=== PATIENT | female | born 1965 | race African-American/Black ===

== ENCOUNTER 2017-07-01 05:15 | Inpatient (IN) ==
[2017-07-01] MEDS ORDERED: PHENERGAN IM ONE (05:39)
[2017-07-01] MEDS ORDERED: G.I. COCKTAIL PO ONE (06:01)
--- NOTE | 2017-07-01 06:08 | PROVIDER DOCUMENTATION ---
HPI-Abdominal Pain/GI Problem - General Chief Complaint: Abdominal Pain Stated Complaint: abd Time Seen by Provider: 07/01/17 05:53 Source: patient Allergies/Adverse Reactions: Patient Allergies Allergy/AdvReac Type Severity Reaction Status Date / Time tiagabine HCl * Allergy Unknown Verified 09/29/16 07:27 [From Gabitril] varenicline tartrate * Allergy Unknown Verified 09/29/16 07:27 [From Chantix] Home Medications: Home Medication List Medication Instructions Recorded Confirmed Last Taken Type Esomeprazole [Nexium] 40 mg PO DAILY 09/13/13 09/29/16 07/12/14 History Hydrocodone/Acetaminophen [Lortab 1 each PO BID 09/13/13 09/29/16 01/30/14 07: 00 History 7.5-500 Tablet] Quetiapine [Seroquel] 200 mg PO BID 09/13/13 09/29/16 07/12/14 08:00 History Venlafaxine E.r. [Effexor Xr] 150 mg PO DAILY 01/30/14 09/29/16 07/12/14 History 150 mh Quetiapine [Seroquel] 600 mg PO QHS 01/31/14 09/29/16 1 Day Ago History Alprazolam [Xanax] 1 mg PO TID PRN PRN #20 tablet 02/06/14 09/29/16 07/12/14 Rx Oxycodone HCl/Acetaminophen 1 each PO Q6H PRN PRN #15 tablet 02/06/14 09/29/16 Unknown Rx [Percocet 7.5-325 mg Tablet] Risperidone [Risperdal] 3 mg PO DAILY 07/13/14 09/29/16 1 Day Ago History Trazodone [Desyrel] 150 mg PO DAILY 07/13/14 09/29/16 1 Day Ago History Albuterol 2.5MG/Ipratrop 0.5MG 3 ml INH Q6H PRN PRN #100 neb 07/25/15 09/29/16 Unknown Rx [Duoneb] Losartan/Hydrochlorothiazide 1 each PO QAM #30 tablet 07/25/15 09/29/16 Unknown Rx [Hyzaar 100-25 Tablet] Metoprolol Succinate [Toprol Xl] 50 mg PO QAM #30 tab.er.24h 07/25/15 09/29/16 1 Day Ago Rx Guaifenesin/Codeine Phosphate 10 ml PO Q4HR PRN #120 liquid 09/29/16 Unknown Rx [Cheratussin AC Syrup] Hydrocodone/Acetaminophen [[place] 1 each PO Q4-6H PRN PRN #20 tablet 09/29/16 Unknown Rx 10-325 Tablet] Amlodipine Besylate/Benazepril 1 tab PO DAILY 07/01/17 07/01/17 1 Day Ago History [Amlodipine-Benazepril 10-40 mg] Clonidine HCl [Clonidine HCl] 0.1 mg PO BID 07/01/17 07/01/17 1 Day Ago History Duloxetine HCl [Duloxetine HCl] 60 mg PO DAILY 07/01/17 07/01/17 1 Day Ago History Estradiol [Estradiol] 1 mg PO DAILY 07/01/17 07/01/17 1 Day Ago History Omeprazole [Omeprazole] 40 mg PO DAILY 07/01/17 07/01/17 1 Day Ago History Promethazine HCl 25 mg PO Q8HR 07/01/17 07/01/17 1 Day Ago History - History of Present Illness-ABD Nature of Presenting Problems: Pt reports several months of abdominal pain and now she has diarrhea. She reports many tests such as CT scans and taking prilosec from her doctor without any relief and is scheduled to see Dr clark for her trouble on Thursday. Abdominal Pain Onset Location: reports: generalized abdomen Pain Radiation: reports: epigastric Quality of Pain: reports: fullness Onset/Duration: reports: other (1-2 months, she has a past history of hepatitis C, but it went away??? She has bipolar disorder and is the mother of 3 children. She is scheduled to see Dr Clark in 2 days for a GI consult) Review of Systems - Adult - REVIEW OF SYSTEMS - ADULT Constitutional: denies: chills, fever Eyes: denies: discharge, blurred vision Ears, Nose, Mouth & Throat: denies: ear pain, sinus problem Cardiovascular: denies: chest pain, heart murmur, palpitations Respiratory: denies: chronic cough, shortness of breath, wheezing Gastrointestinal: reports: abdominal pain, diarrhea, nausea, vomiting. denies: constipation Genitourinary: denies: dysuria, hematuria Musculoskeletal: denies: bone pain, joint pain Integumentary: denies: hives, mole changes Neurological: denies: ataxia, numbness Psychiatric: reports: other (bipolar). denies: insomnia Endocrine: denies: goiter, cold intolerance, heat intolerance Hematologic/Lymphatic: denies: low blood count, lymphedema Allergic/Immunologic: denies: asthma, eczema, urticaria Past History - Adult - PAST MEDICAL HISTORY-ADULT Review of Records: reports: Nursing Assessment Review, Medications Reviewed Major Childhood Illnesses: reports: denies history Cardiovascular: reports: HTN Respiratory: reports: COPD Gastrointestinal: reports: GERD Obstetrical/Gynecological: reports: denies history Genitourinary: reports: denies history Musculoskeletal: reports: denies history Neurological: reports: denies history Psychiatric: reports: bipolar Endocrine/Immune: reports: denies history Other Conditions: reports: denies history - PRIOR SURGERIES/PROCEDURES Surgical/Procedure History: reports: hysterectomy - IMMUNIZATION STATUS Childhood Immunizations: See Nurse Assessment Flu Vaccine: See Nurse Assessment - FAMILY HISTORY Family History: reviewed, not pertinent Physical Exam-General - PHYSICAL EXAM-ADULT Initial Vital Signs Reviewed: Yes - CONSTITUTIONAL General Appearance: appears well, alert, moderate distress - EYES Eyes: PERRL/EOMI, pink conjunctivae - HEAD, EARS, NOSE, MOUTH & THROAT HENMT: normocephalic/atraumatic, moist mucous membranes, normal ENT inspection - NECK Neck: non-tender, full range of motion, supple, normal inspection - RESPIRATORY Respiratory: chest non-tender, lungs clear, normal breath sounds, no pleuratic chest pain, no respiratory distress - CARDIOVASCULAR Cardiovascular: normal peripheral pulses, regular rate, rhythm, no edema, no gallop, no JVD, no murmur - GASTROINTESTINAL (ABDOMEN) Abdominal Exam: normal bowel sounds, non tender, soft, no organomegaly, no pulsatile mass - LYMPHATIC Lymphatic: no adenopathy - MUSCULOSKELETAL Back Exam: normal inspection, no CVA tenderness, no vertebral tenderness Extremity: normal range of motion, non-tender, normal gait, normal inspection - SKIN Integumentary: normal color, normal turgor, warm/dry - NEUROLOGIC 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, grossly normal, no motor/sensory deficits - PSYCHIATRIC Psych/Mental Status: normal mood/affect, normal thought content, normal thought process, oriented x 3 Progress - PLAN OF CARE/RESULTS Progress/Plan/Lab Results: Vital Signs - 8 hr 07/01/17 05:17 Temperature 98.1 F Pulse Rate 72 Respiratory Rate 18 Blood Pressure 198/097 O2 Sat by Pulse Oximetry 97 Orders Category Date Time Status Saline Loc DIRECTED Care 07/01/17 06:00 Ordered NPO Diet 07/01/17 06:00 Ordered AMYLASE [CHEM] Stat Lab 07/01/17 06:00 Ordered CBC WITH ELECTRONIC DIFF [HEME] Stat Lab 07/01/17 06:00 Ordered COMPREHENSIVE METABOLIC PANEL [CHEM] Stat Lab 07/01/17 06:00 Ordered LIPASE [CHEM] Stat Lab 07/01/17 06:00 Ordered UDS [URINE DRUG SCREEN PL] Stat Lab 07/01/17 06:[address] W/POSS RFLX CULT [URINALYSIS] Stat Lab 07/01/17 06:00 Uncollected Lido/Yanez Alk/Al&mg Hydrox [G.i. Cocktail] Med 07/01/17 06:01 Once 30 ml PO NOW ONE Promethazine [Phenergan] Med 07/01/17 05:39 Discontinued 25 mg IM NOW ONE Result Diagrams: 07/01/17 06:53 07/01/17 06:53 - REASSESSMENT Reassessment #1 Time Reassessed: 07:17 Status: unchanged (she wants something for pain but is apparently constipated , so donnie start meds for evacuation) - CONSULTS/PCP/HOSPITALIST Notification #1 *Consult/PCP/Hospitalist*: Dr Benítez Time Discussed: 10:11 Consult Disposition: Admit (pancreatitis) Departure - Departure Date of Disposition Decision: 07/01/17 Time of Disposition Decision: 10:12 DIAGNOSIS: Pancreatitis, acute Qualifiers: Pancreatitis type: alcohol induced Acute pancreatitis complication: no infection or necrosis Qualified Code(s): K85.20 - Alcohol induced acute pancreatitis without necrosis or infection Disposition: ADMITTED INPATIENT 09 Certified Medical Emergency: Emergent Condition: Stable Referrals and Follow-Ups: None,PCP [Primary Care Provider] - - Critical Care Note This patient required my direct & personal management of CC.: No Attestation - Physician/ MATTHEW Attestation The physician spent face to face time with patient:: Yes Advanced Practice Provider documentation review:: Supervising physician onsite and consulted in the evaluation and care of this patient. The physician did have a face to face encounter with the patient.
[2017-07-01] MEDS ORDERED: NS 1,000 ML IV ONE ×2 (06:14→07:28)
[2017-07-01] MEDS ORDERED: DULCOLAX PO ONE (07:12)
[2017-07-01 07:15] LABS: MANUAL DIFF NEEDED? NO
[2017-07-01 07:17] LABS: BASO% 0.1 % (0.0-0.8); EOS# 0.02 X1000 (0.0-0.7); EOS% 0.1 % (0.0-10.0); HEMATOCRIT 47.5 % (37.0-47.0); IMM GRAN# 0.02 X1000 (0.0-0.04); IMM GRAN% 0.1 % (0.0-0.5); LYMPH# 2.31 X1000 (1.2-3.4); LYMPH% 16.8 % (20.5-51.1); MCH 29.9 PG (27-31); MCHC 33.7 g/dL (33-37); MCV 88.8 FL (81-99); MONO# 0.79 X1000 (0.11-0.59); MONO% 5.8 % (1.7-9.3); MPV 9.5 FL (7.4-10.4); NEUT% 77.1 % (42.2-75.2); PLT 304 X1000 (130-400); RBC 5.35 XMIL (4.2-5.4)
--- NOTE | 2017-07-01 07:24 | Diag Imaging Result Doc PS360 ---
EXAM: FLAT/UPRIGHT ABD/1 VIEW CHEST HISTORY: n/v/d abdominal pain TECHNIQUE: Three views COMPARISON: 05/04/2017 FINDINGS: The lungs are well expanded. No cardiomegaly. No pneumonia. No free air beneath the diaphragm. No bowel obstruction. The liver is mildly prominent. No foreign body. No abnormal abdominal calcification. IMPRESSION: Mildly prominent liver, otherwise negative exam. Electronically signed by Kody Salas 07/01/2017 7:22 AM
[2017-07-01] MEDS ORDERED: CITRATE OF MAGNESIA PO ONE (07:27)
[2017-07-01 07:39] LABS: AGAP 11; ALBUMIN 4.5 g/dL (3.5-5.0); ALKALINE PHOSPHATASE 87 U/L (32-104); AMYLASE 231 U/L (20-200); BUN 17 mg/dL (8-22); CHLORIDE 100 mmol/L (98-107); COSMO 286; GOT 19 U/L (10-30); GPT 19 U/L (10-36); LIPASE 167 U/L (13-60); POTASSIUM 3.7 mmol/L (3.5-5.1); SODIUM 141 mmol/L (136-145); TCO2 30 mmol/L (25-35); TOTAL BILIRUBIN < 0.15 mg/dL (0.20-1.00); TOTAL PROTEIN 7.8 g/dL (6.3-8.3)
[2017-07-01] MEDS ORDERED: TORADOL IV ONE (07:44)
[2017-07-01] MEDS ORDERED: ZOFRAN IV ONE ×2 (07:59→09:38)
--- NOTE | 2017-07-01 08:34 | Diag Imaging Result Doc PS360 ---
EXAM: CT ABD/PELVIS W/ IV CONT ONLY HISTORY: elevated WBC/pancreatitis/constipation TECHNIQUE: CT abdomen and pelvis with IV contrast as per standard protocol. Dose reduction technique. COMPARISON: 06/17/2016 FINDINGS: There is been interval clearing of the left basilar infiltrate. The liver, spleen, kidneys, and adrenal glands are unremarkable. The pancreas appears grossly normal. There is no peripancreatic inflammation. There is a hiatal hernia. The stomach is nondistended. Fat-containing ventral hernia appears stable. There is atherosclerotic calcification. There is no free fluid or free air. No evidence for bowel obstruction. The appendix appears normal. There is no lymphadenopathy. There is lower lumbar spondylosis. The uterus is surgically absent. IMPRESSION: Stable CT of the abdomen and pelvis. Hiatal and ventral hernia. Electronically signed by Tammy Soria 07/01/2017 8:31 AM
[2017-07-01 08:45] LABS: BILIRUBIN URINE NEGATIVE (NEGATIVE); BLOOD URINE NEGATIVE (NEGATIVE); CLARITY CLEAR (CLEAR); COLOR YELLOW; GLUCOSE URINE NEGATIVE (NEGATIVE); LEUKOCYTES URINE 1+ (NEGATIVE); NITRITE URINE NEGATIVE (NEGATIVE); PROTEIN URINE NEGATIVE (NEGATIVE); UROBILINOGEN URINE NORMAL
[2017-07-01 08:50] LABS: UR AMPHETAMINES QUAL NONE DETECTED (NONE DETECT); UR BARBITUATES QUAL NONE DETECTED (NONE DETECT); UR BENZODIAZEPIN QUAL PRESUMPTIVE POSITIVE (NONE DETECT); UR CANNABINOIDS QUAL PRESUMPTIVE POSITIVE (NONE DETECT); UR COCAINE QUAL NONE DETECTED (NONE DETECT); UR MDMA QUAL NONE DETECTED (NONE DETECT); UR METHADONE QUAL NONE DETECTED (NONE DETECT); UR METHAMPHETAMINE QUAL NONE DETECTED (NONE DETECT); UR OPIATES QUAL NONE DETECTED (NONE DETECT); UR OXYCODONE QUAL NONE DETECTED (NONE DETECT); UR PCP QUAL NONE DETECTED (NONE DETECT); UR TCA QUAL NONE DETECTED (NONE DETECT)
[2017-07-01] MEDS ORDERED: CATAPRES PO ONE (08:54)
[2017-07-01] MEDS ORDERED: TOPROL XL PO ONE (08:56)
[2017-07-01] MEDS ORDERED: LOTENSIN PO ONE (08:56)
[2017-07-01] MEDS ORDERED: COZAAR PO ONE (08:56)
[2017-07-01] MEDS ORDERED: HYDROCHLOROTHIAZIDE PO ONE (08:56)
[2017-07-01] MEDS ORDERED: NORVASC PO ONE (08:56)
[2017-07-01 09:00] LABS: URINE CULTURE PL NEEDED? YES; URINE EPITHELIAL CELLS <10 /HPF (<10); URINE RBC <10 /HPF (<10)
[2017-07-01 09:01] LABS: URINE CAST NONE SEEN /LPF; URINE CRYSTAL NONE SEEN /HPF; URINE SOURCE CLEAN CATCH
[2017-07-01] MEDS ORDERED: DILAUDID IV ONE ×2 (09:38→10:20)
[2017-07-01] MEDS ORDERED: APRESOLINE IV ONE (10:20)
[2017-07-01] MEDS ORDERED: DESYREL PO PRN (15:28)
[2017-07-01] MEDS ORDERED: CATAPRES PO PRN (15:34)
[2017-07-01] MEDS ORDERED: KLONOPIN PO ONE (15:41)
[2017-07-01] MEDS ORDERED: TYLENOL PO PRN (15:42)
[2017-07-01 16:42] LABS: AMYLASE 167 U/L (20-200); LIPASE 31 U/L (13-60)
[2017-07-01] MEDS: VENTOLIN HFA INH SCH (16:45)
[2017-07-01] MEDS: PHENERGAN IV PRN (18:09)
[2017-07-01] MEDS: CARAFATE LIQUID PO SCH ×2 (18:09→21:01)
[2017-07-01] MEDS: SODIUM CHLORIDE 0.9% INJ PRN (18:09)
[2017-07-01] MEDS ORDERED: SODIUM CHLORIDE 0.9% INJ SCH (18:45)
[2017-07-01] MEDS: PROTONIX IV SCH (19:09)
[2017-07-01] MEDS: MORPHINE IV PRN ×2 (19:42→23:08)
[2017-07-01] MEDS ORDERED: RISPERDAL PO SCH (21:00)
[2017-07-01] MEDS ORDERED: SEROQUEL XR PO SCH (21:00)
[2017-07-01] MEDS: KLONOPIN PO SCH (21:08)
--- NOTE | 2017-07-01 23:53 | HISTORY AND PHYSICAL ---
WOMEN'S [employer] COACH: Dr. Clark. CHIEF COMPLAINT: Abdominal pain, nausea and vomiting. HISTORY OF PRESENT ILLNESS: This is a 51-year-old female with a prior history of intractable nausea, vomiting, abdominal pain, and gastric ulcers. She presented to the emergency room complaining of 1 month of abdominal bloating, increased gas, nausea and vomiting. She did state that she has an appointment Dr. Clark on Thursday but she cannot wait until then. She states that "I have never been able to burp since I been born" so she takes a few tablespoons of soda a few times today to assure that she burps. She states this does relieve for a little while then she feels bloated again requiring her to take more baking soda. She did state that she had been vomiting quite heavily up into the morning and prior to coming to the emergency room. She was given Phenergan as well as it looks like 12 mg of Zofran in the emergency room along with IV hydration. Vomiting did subside and her pain did relieve somewhat. She was found to have an amylase of 231 and a lipase of 167 on her admission labs. Abdominal and pelvis CT scan revealed liver, spleen, kidneys and adrenal glands unremarkable. Pancreas grossly normal. No peripancreatic inflammation. She does have a hiatal hernia, a nondistended stomach as well as a ventral hernia. She denies any history of regular alcohol use. She does state that occasionally she has a beer or so socially. Her daughter is unaware of her drinking at all. PAST MEDICAL HISTORY: Questionable diabetes, previous gastric ulcer, gastritis , hypertension, gastroesophageal reflux disease, bipolar disorder. PAST SURGICAL HISTORY: Hysterectomy. SOCIAL HISTORY: She smokes 1-2 packs a day. She has occasional beer socially. She denies any substance abuse. ALLERGIES: Chantix and Gabitril. HOME MEDICATIONS: Tramadol, Seroquel, [place] 10, Klonopin, gabapentin, Vyvanse, risperidone, omeprazole, trazodone, Voltaren, Toprol-XL, amlodipine, benazepril, clonidine, estradiol, duloxetine. Dosages will be confirmed. REVIEW OF SYSTEMS: A 14 point review of systems is discussed with patient with pertinent positives stated in HPI. She denied chest pain, palpitations, dizziness, syncope, black or bloody vomitus, black or bloody stools, any hematuria, dysuria, frequency, urgency. PHYSICAL EXAMINATION: GENERAL: This is a 51-year-old female who is lying in the bed in mild distress. VITAL SIGNS: Blood pressure is 150/90 with a heart rate of 60, respirations are 16, temperature is 98.1 degrees with a room air saturation of 96-100%. HEENT: Head is normocephalic, atraumatic. Pupils equal, round, react to light. EOMs are intact. Sclerae anicteric. Mucous membranes are moist. NECK: Supple. Trachea midline. CARDIOVASCULAR: Regular rate and rhythm. S1, S2 appreciated. PULMONARY: Breath sounds are clear with no increased work of breathing noted. BACK: No CVAT. No spine tenderness. GASTROINTESTINAL: Abdomen is distended. It is soft. She has generalized tenderness. Areas of tenderness fluctuate from exam to exam. She does have bowel sounds in all 4 quadrants. MUSCULOSKELETAL: Good range of motion of joints. NEUROLOGIC: She is alert orient x3. Cranial nerves 2-12 grossly intact. EXTREMITIES: No clubbing, cyanosis, or edema. Calves are nontender. Pulses are palpable x4. DIAGNOSTICS: WBC is 13.7 with hemoglobin 16, hematocrit 47 and platelets of 304 ,000. Sodium is 141, potassium 3.7, BUN 17, creatinine 0.9, CO2 is 30, glucose of 158. Amylase is [address] of the abdomen and pelvis reveals a hiatal and ventral hernia with a grossly normal pancreas and no peripancreatic inflammation. Abdominal x-ray reveals a prominent liver, otherwise negative exam. ASSESSMENT AND PLAN: 1. Nausea, vomiting and abdominal pain. This is chronic. This has been a problem for about 6 years. She was last evaluated by Dr. Clark in 2013. We will repeat her amylase and lipase. She will be NPO. If amylase and lipase have resolved we can start clear liquids and advance as tolerated. We will give IV hydration as well as IV pain and nausea medication. We will call Dr. Clark with plans to transfer her to [facility] today or in the next few days for further evaluation. We will order a gastric emptying study for in the morning. 2. History of ulcer. We will hold any anti-inflammatories. Start Carafate 1 g q.6 hours with IV Protonix. 3. Leukocytosis. The patient denies any fever, chills or any sick contacts. She is afebrile now. This could be reactive. As we can see no source of infection, we will trend her labs, watch vital signs and antibiotics will be started if appropriate. 4. History of hypertension. We will identify her home medications at present and we will trend vital signs. We will start as appropriate. If vomiting resumes, we may have to treat IV. 5. Chronic obstructive pulmonary disease. We will continue medications as appropriate. Have breathing treatments p.r.n. 6. Bipolar/schizophrenia. We will identify her psych medications and continue as appropriate. 7. Nicotine abuse. I did speak with the patient regarding smoking cessation, the perils of continuing at this time. She states she has no intention of stopping. 8. Deep venous thrombosis prophylaxis. As she has had ulcers in the past, we will use SCDs and for GI prophylaxis, as stated before, we will use Protonix. Further treatments pending hospital course. Dictated by DOMINIQUE Morgan for Ernie Benítez MD cc: DOMINIQUE Morgan MD [facility]
[2017-07-01] MEDS ORDERED: DUONEB (A & A) INH PRN (23:57)
[2017-07-02] MEDS ORDERED: DUONEB (A & A) INH PRN (00:01)
[2017-07-02] MEDS: CARAFATE LIQUID PO SCH ×4 (02:02→19:59)
[2017-07-02] MEDS ORDERED: MORPHINE IV ONE (02:10)
[2017-07-02] MEDS: MORPHINE IV PRN ×3 (02:22→08:48)
[2017-07-02] MEDS: PHENERGAN IV PRN ×3 (02:22→13:15)
[2017-07-02] MEDS: VENTOLIN HFA INH SCH ×3 (03:39→21:10)
[2017-07-02 05:51] LABS: HEMATOCRIT 49.8 % (37.0-47.0); HEMOGLOBIN 16.6 g/dL (12.0-16.0); MCH 29.9 PG (27-31); MCHC 33.3 g/dL (33-37); MCV 89.6 FL (81-99); MPV 9.9 FL (7.4-10.4); RBC 5.56 XMIL (4.2-5.4)
[2017-07-02 05:55] LABS: HEMOGLOBIN A1C 5.5 % (4.8-6.0)
[2017-07-02 06:27] LABS: AGAP 19; ALBUMIN 4.8 g/dL (3.5-5.0); ALKALINE PHOSPHATASE 90 U/L (32-104); AMYLASE 127 U/L (20-200); BUN 9 mg/dL (8-22); CALCIUM 9.7 mg/dL (8.8-10.2); CHLORIDE 97 mmol/L (98-107); COSMO 287; GOT 23 U/L (10-30); GPT 17 U/L (10-36); LIPASE 24 U/L (13-60); POTASSIUM 4.3 mmol/L (3.5-5.1); SODIUM 143 mmol/L (136-145); TCO2 27 mmol/L (25-35); TOTAL BILIRUBIN 0.29 mg/dL (0.20-1.00); TOTAL PROTEIN 8.3 g/dL (6.3-8.3)
[2017-07-02] MEDS ORDERED: PRILOSEC PO SCH (07:00)
--- NOTE | 2017-07-02 08:38 | Diag Imaging Result Doc PS360 ---
GASTRIC EMPTYING - 07/02/2017 INDICATION: N,V, abd pain TECHNIQUE: 559 uCi of labeled solid food was ingested COMPARISON: CT abdomen pelvis 07/01/2017 FINDINGS: There was no gastric emptying during the exam. Imaging was 0%. The patient was very nauseous throughout the exam. IMPRESSION: No gastric emptying compatible with severe gastroparesis or gastric outlet obstruction. No reason for obstruction is visible on the CT from yesterday. Electronically signed by Zach Hayden 07/02/2017 8:35 AM
[2017-07-02] MEDS: SODIUM CHLORIDE 0.9% INJ PRN (08:49)
[2017-07-02] MEDS: PROTONIX IV SCH ×2 (08:49→20:15)
[2017-07-02] MEDS ORDERED: NORVASC PO SCH (09:00)
[2017-07-02] MEDS ORDERED: SEROQUEL XR PO SCH (09:00)
[2017-07-02] MEDS ORDERED: LOTENSIN PO SCH (09:00)
[2017-07-02] MEDS ORDERED: TOPROL XL PO SCH (09:00)
[2017-07-02] MEDS: KLONOPIN PO SCH ×3 (09:35→20:00)
[2017-07-02] MEDS ORDERED: DESYREL PO PRN (09:55)
[2017-07-02] MEDS ORDERED: MORPHINE IV PRN (09:57)
[2017-07-02] MEDS ORDERED: TYLENOL PO PRN (10:00)
[2017-07-02] MEDS: SEROQUEL XR PO SCH (13:15)
--- NOTE | 2017-07-02 17:36 | PROGRESS NOTE ---
DATE: 07/02/2017 SUBJECTIVE: Today, Ms. Robert continues to be complaining of abdominal pain, but no nausea, and no diarrhea. OBJECTIVE: Vital Signs: Blood pressure is 175/118, pulse is 104, respirations 20, temperature 98.5 degrees. General: Ms. Robert is a 51-year-old female. She was in bed, not seemingly distressed. HEENT: Mucosa is pink and moist. Anicteric. Acyanotic. Neck: Supple. Chest: Clear. Abdomen: Soft, distended. There is some tenderness in the epigastrium. Bowel sounds seem to be hyperreactive. Extremities: No pedal edema. Central Nervous System: Patient is awake and alert and oriented. There is no focal neurological deficit. LABORATORY DATA: WBC is 11.2. Hemoglobin is 16.6. Platelet count is 293,000. Chemistry is reviewed, is completely unremarkable. Amylase is back to normal, and lipase is actually 24. IMAGING STUDIES: A CT scan of the abdomen and pelvis was done on presentation, which shows stable abdomen, hiatal and ventral hernia. A nuclear study was done at 8:00 this morning, which shows no gastric emptying compatible with severe gastroparesis and gastric outlet obstruction. ASSESSMENT: 1. Nausea and vomiting secondary to severe gastroparesis. 2. Constipation, likely due to narcotic abuse. 3. History of peptic ulcer disease. 4. Hypertension. 5. Bipolar and schizophrenia. 6. Elevated lipase and amylase. However, I do not think patient has an acute pancreatitis, and more so, CT scan did not show any abnormality in the pancreas. PLAN: We are going to keep the patient NPO, put in an NG tube if she continues to be extremely nauseated and vomiting. We will specifically stop giving the patient any narcotic, since she seems to have severe gastroparesis with possible gastric obstruction syndrome. GI has already been notified, and we anticipate that this patient gets an EGD just to look at the Upper GI tract. cc: Enoch Mcneill MD [facility]
[2017-07-02] MEDS: OFIRMEV 1000 MG/ISOTONIC SOLN 1,000 MG/100 ML BOTTLE IV PRN (18:57)
[2017-07-02] MEDS: RISPERDAL PO SCH (19:59)
[2017-07-02] MEDS: CATAPRES PO PRN (20:00)
[2017-07-02] MEDS: SODIUM CHLORIDE 0.9% INJ SCH (20:15)
--- NOTE | 2017-07-02 22:05 | CONSULTATION ---
DATE OF CONSULTATION: 07/02/2017 REFERRING PHYSICIAN: Enoch Mcneill M.D. INDICATION FOR CONSULTATION: 1. Nausea with vomiting. 2. Abdominal pain. 3. Elevated amylase and lipase. HISTORY OF PRESENT ILLNESS: The patient is a 51-year-old female who has been followed in our clinic for the last several years. She states that she was in her usual state of health until approximately 1 month ago when she began to have intermittent nausea and vomiting. She notes that the frequency increased to the point that she was vomiting on a near daily basis. On the morning of admission, she developed severe epigastric pain that radiated into her upper back associated with profuse nausea with vomiting that she was unable to control. She describes one month of abdominal bloating, gas, nausea and vomiting. She has a history of gastroparesis that was diagnosed on gastric-emptying study in 2013. She has been intermittently consistent with a gastroparesis diet. She has had chronic nausea with intermittent vomiting, but not to the degree of the consistency that it is at this time. She notes difficulty with burping, so she takes a small amount of baking soda every day in order to burp or belch. In the emergency room, she had severe vomiting and was found to be dehydrated. She was noted to have an elevated amylase to 231 and an elevated lipase of 167 on admission, although she has does not have a history of heavy alcohol ingestion. In the emergency room, she had a CT scan that revealed normal liver, spleen, kidney and adrenal glands. The pancreas appeared grossly normal. There was no peripancreatic inflammation. She was noted to have a hiatal hernia which was initially found on endoscopy in 2013. The stomach on CT scan was nondistended. Please note, it was in IV only contrast study. She has a stable fat-containing ventral hernia, atherosclerotic calcifications and normal appendix. She does have mild lower lumbar spondylosis, but otherwise the exam was unremarkable. It is stable from previous exams. Because of her symptoms, we are asked to participate in her care. PAST MEDICAL HISTORY: 1. Diabetes mellitus 2. 2. Hepatitis C with mild periportal fibrosis on liver biopsy. She completed Harvoni in 2016 and has had a sustained viral response. 3. Gastroparesis. 4. Erosive gastritis and erosive duodenitis on EGD with her last exam being performed in 2015. 5. History of colon polyps. 6. Gastroesophageal reflux disease. 7. History of peptic ulcer disease. She has had both gastric ulcers and pyloric channel ulcers. 8. Vitamin D deficiency. 9. Hiatal hernia. 10. Small bowel and colonic AVMs. 11. Nonspecific colitis on biopsy in 2016. 12. Iron deficiency anemia in 2014 and 2016. PAST SURGICAL HISTORY: Hysterectomy. SOCIAL HISTORY: The patient reports rare social alcohol ingestion with an occasional beer. She has been using marijuana to control the nausea with vomiting. Please note that the nausea and vomiting precedes her marijuana use. She has smoked 1-2 packs per day of cigarettes for years. She states that she began smoking in her teenage years. PHYSICAL EXAMINATION: General: On exam, she is ill-appearing, but in no acute distress. She reports a significant amount of pain. Vital signs: Her blood pressure is 178 /118, pulse 104, respiration 20, temperature of 98.5 degrees. HEENT: Negative for jaundice. Her oropharyngeal mucosal membranes are dry. Pulmonary: Lungs are clear to auscultation with normal expiratory effort. Cardiovascular: She has a resting tachycardia with no murmurs, gallops , or rubs. Abdominal: Reveals interval abdominal distention with hypoactive bowel sounds. The abdomen is soft, but distended. There is moderate to significant epigastric and right upper quadrant tenderness. There is no rebound or guarding. Extremities: Bilaterally are negative for cyanosis, clubbing, or edema. OBJECTIVE DATA: Reveals a hemoglobin of 16.6 with hematocrit of 49.8, and a white count of 11.20. Sodium is 143, potassium 4.3, chloride 97, CO2 27, BUN 9, creatinine 0.8 with a glucose of 150. Her hemoglobin A1c is 5.5. Calcium is 9.7, total bilirubin 0.29, AST 23, ALT 17 , alkaline phosphatase 90, total protein 8.3, and albumin 4.8. Her amylase and lipase have improved since admission and are 127 and 24, respectively. On CT scan, her findings are as noted above. Her KUB reveals a nonspecific pattern with no evidence of obvious obstruction. She does have a mildly prominent liver, but the exam was otherwise negative. IMPRESSION: 1. Nausea with vomiting. 2. Diffuse abdominal pain. 3. Elevated white blood cell count. 4. Elevated hemoglobin. 5. History of hepatitis C status post a sustained viral response after treatment with Harvoni. 6. History of peptic ulcer disease. 7. History of gastroesophageal reflux disease. 8. History of iron-deficiency anemia. RECOMMENDATION: 1. The patient underwent a gastric emptying study today that shows complete gut atony. There was 0 emptying of her stomach at 2 hours. Therefore, I recommend placing a nasogastric tube for gastric decompression. 2. In the morning, I will obtain a barium series with contrast injected through the NG tube into the gastric lumen to assess for an obstruction. Depending on the findings, I will tentatively place her on the schedule for an EGD tomorrow afternoon approximately 6 hours after her barium swallow is complete. I have asked Radiology to perform our exam early in the morning so that we are able to perform endoscopy tomorrow afternoon. 3. Continue IV Protonix 40 mg q.12 hours. 4. Continue oral Carafate 1 g p.o. q.4 hours. Please hold her Carafate prior to her endoscopy. 5. Please check a PT/INR, CEA, alpha fetoprotein, CBC and repeat her hepatitis C quantitative measurement to assess for continued sustained viral response. 6. She will eventually need a to resume a gastroparesis diet. She has been instructed on a gastroparesis diet, but I will review with her again prior to discharge. 7. The cause of her abdominal pain is unclear. The cause of the functional outlet obstruction is also unclear. Additional recommendations for evaluation will be based on her endoscopic findings. 8. Continue antiemetics at this time. 9. Additional recommendations to follow based on her clinical course. cc: MD Enoch Spievy MD Gregory S. Cheatham, MD MTDD
[2017-07-03] MEDS: SEROQUEL XR PO SCH ×4 (00:01→20:09)
[2017-07-03] MEDS: OFIRMEV 1000 MG/ISOTONIC SOLN 1,000 MG/100 ML BOTTLE IV PRN (02:20)
[2017-07-03] MEDS: CARAFATE LIQUID PO SCH ×4 (02:36→20:08)
[2017-07-03] MEDS: VENTOLIN HFA INH SCH ×4 (03:28→22:05)
[2017-07-03] MEDS: CATAPRES PO PRN (04:11)
[2017-07-03 05:21] LABS: MANUAL DIFF NEEDED? NO
[2017-07-03 05:34] LABS: BASO% 0.1 % (0.0-0.8); EOS# 0.01 X1000 (0.0-0.7); EOS% 0.1 % (0.0-10.0); HEMATOCRIT 48.4 % (37.0-47.0); HEMOGLOBIN 16.2 g/dL (12.0-16.0); IMM GRAN# 0.02 X1000 (0.0-0.04); IMM GRAN% 0.1 % (0.0-0.5); LYMPH# 2.73 X1000 (1.2-3.4); LYMPH% 17.6 % (20.5-51.1); MCH 29.6 PG (27-31); MCHC 33.5 g/dL (33-37); MCV 88.3 FL (81-99); MONO# 1.37 X1000 (0.11-0.59); MONO% 8.8 % (1.7-9.3); MPV 9.6 FL (7.4-10.4); NEUT% 73.3 % (42.2-75.2); PLT 319 X1000 (130-400); RBC 5.48 XMIL (4.2-5.4)
[2017-07-03 05:53] LABS: PROTIME 10.5 Seconds (9.2-11.7)
[2017-07-03 06:07] LABS: AGAP 14; ALBUMIN 4.5 g/dL (3.5-5.0); ALKALINE PHOSPHATASE 84 U/L (32-104); BUN 13 mg/dL (8-22); CALCIUM 9.2 mg/dL (8.8-10.2); CHLORIDE 95 mmol/L (98-107); COSMO 279; GOT 15 U/L (10-30); GPT 12 U/L (10-36); POTASSIUM 3.3 mmol/L (3.5-5.1); SODIUM 138 mmol/L (136-145); TCO2 29 mmol/L (25-35); TOTAL BILIRUBIN 0.52 mg/dL (0.20-1.00); TOTAL PROTEIN 8.2 g/dL (6.3-8.3)
--- NOTE | 2017-07-03 07:19 | Diag Imaging Result Doc PS360 ---
CHEST/ABD TUBE PLACEMENT - 07/03/2017 INDICATION: ngt placement TECHNIQUE: COMPARISON: 07/01/2017 FINDINGS: There is a nasogastric tube in good position with the tip in the stomach. IMPRESSION: Nasogastric tube in the stomach. Electronically signed by Zach Hayden 07/03/2017 7:17 AM
--- NOTE | 2017-07-03 08:21 | Diag Imaging Result Doc PS360 ---
EXAM: GI SERIES WITH BA SWALLOW HISTORY: please assess for outlet obstruction; use ng tube TECHNIQUE: Upper GI series through NG tube the total dose was 1435.9 cGy per square centimeter for a fluoroscopy time of one minute 10 seconds. COMMENT: A limited amount of barium was employed due to the patient's being scheduled for endoscopy later today. The barium which was introduced into the gastric body with almost immediately emptied through the pylorus and duodenum. It is seen past the ligament of Treitz within five minutes. There is active peristalsis in the distal stomach and duodenum. No evidence of stricture is demonstrated. IMPRESSION: No evidence of gastric outlet obstruction or gastroparesis. Electronically signed by Zain Carlton 07/03/2017 8:19 AM
[2017-07-03] MEDS: LOTENSIN PO SCH (09:00)
[2017-07-03] MEDS: TOPROL XL PO SCH (10:21)
[2017-07-03] MEDS: NORVASC PO SCH (10:21)
[2017-07-03] MEDS: KLONOPIN PO SCH ×3 (10:21→20:09)
[2017-07-03] MEDS: KEFZOL 1 GM/D5W 1 GM/50 ML IVPB IV SCH ×2 (10:31→16:45)
[2017-07-03] MEDS: PROTONIX IV SCH ×2 (10:31→20:09)
[2017-07-03] MEDS: SODIUM CHLORIDE 0.9% INJ SCH ×2 (10:31→20:09)
--- NOTE | 2017-07-03 15:13 | PROGRESS NOTE ---
DATE: 07/03/2017 SUBJECTIVE: Today Ms. Robert referred to be doing a whole lot better. NG tube is in place, but it is not draining anything much. The patient has had an upper GI barium swallow, which was completely normal. She refers to be doing a lot better. No abdominal pain. OBJECTIVE: Vital Signs: Blood pressure is 151/99, pulse of 95, respirations 18, temperature is 98.6 degrees. General: Ms. Robert is a 51-year-old female. She is in bed, not seemingly distressed. HEENT: Mucosa is pink and moist. Anicteric. Acyanotic. Neck: Supple. Chest: Clear. Cardiovascular: Regular rate and rhythm. Abdomen: Soft, nontender. Bowel sounds are present. There is no hepatosplenomegaly, and there is no pain. Extremities: No pedal edema. Central Nervous System: The patient is awake, alert, oriented. There is an NG tube in place. LABORATORY DATA: WBC is 15.54, hemoglobin is 16.3, platelet count of 319,000. Chemistry is reviewed. Potassium is 3.3. The rest of chemistry is completely normal. Small bowel upper GI series showed no evidence of gastric outlet obstruction or gastroparesis. ASSESSMENT AND PLAN: 1. Nausea and vomiting, resolved. Constipation, likely due to opioid abuse. 2. History of peptic ulcer disease. 3. Severe gastroparesis on gastric empty studies; however, a upper gastrointestinal series was done, which shows normal studies with the barium immediately emptying into the pillars and duodenum. No evidence of gastric outlet obstruction was seen on this study done today. 4. Gram-positive cocci urinary tract infection. The patient refers that about 1 week ago she was treated for a urinary tract infection with oral medications. However, she continues to have some burning on urination. We will start the patient on Ancef until we have the final identification and sensitivity on this bacteria. 5. Elevated lipase and amylase have normalized. 6. History of bipolar and schizophrenia. DISCUSSION: So today I thing Ms Robert is doing a whole lot better. There is minimum output from the nasogastric tube, and an upper gastrointestinal barium swallow is completely normal. I think the nasogastric tube can be removed, but I would defer that to the gastrointestinal specialist who ordered that. Hopefully, by tomorrow, once the nasogastric tube is removed, we will be able to feed Ms. Robert and hopefully get her out by tomorrow. Of note, Ms Robert herself wants to be discharged. Once we know the identification and sensitivity, we will be able to change her to oral medication and get her out. cc: Enoch Mcneill MD
[2017-07-03] MEDS ORDERED: DIPRIVAN 1% ONE ×2 (16:37→16:42)
[2017-07-03] MEDS ORDERED: XYLOCAINE-MPF 2% ONE (16:45)
--- NOTE | 2017-07-03 17:52 | OPERATIVE NOTE ---
PROCEDURE DATE: 07/03/2017 REFERRING PHYSICIAN: Enoch Mcneill M.D. PRIMARY CARE PHYSICIAN: Ajit Chopra M.D. ADDITIONAL PROVIDER: DOMINIQUE Carrillo. INDICATION FOR PROCEDURE: 1. Nausea with vomiting. 2. Abdominal pain. 3. Severe gastroparesis suggestive of possible gastric outlet obstruction. 4. History of peptic ulcer disease. PROCEDURE PERFORMED: Esophagogastroduodenoscopy with biopsy. CONSENT: Informed consent was obtained from the patient prior to the procedure. The risks, benefits, and alternatives were discussed. MEDICATIONS: The patient received monitored anesthesia care. PERFORMING PHYSICIAN: Vidhi Clark M.D. ASSISTANTS: 1. [facility] 2. Daisha Bales RN. 3. Rigo Noguera CRNA. 4. Mahendra Garcia M.D. (anesthesia). COMPLICATIONS: There were no complications. ESTIMATED BLOOD LOSS: Less than 1 mL. SPECIMENS REMOVED: 1. Duodenal biopsy. 2. Gastric biopsy. FINDINGS: After sedation was achieved, the upper endoscope was inserted to the 2nd portion of the duodenum. The hypopharynx appeared normal. The upper and middle esophagus appeared normal. There was reflux esophagitis beginning at 36 cm from the incisors and extending to the GE junction. The GE junction was measured at 40 cm from the incisors. There was a Schatzki ring at the GE junction that was nonobstructive. There was a hiatal hernia that spanned from 40-45 cm. In the cardia, there was a superficial ulcer with a whitish base. In addition, there were areas with hemorrhagic changes and slight oozing from recent NG tube trauma. Throughout the gastric lumen, there was mild erosive gastritis with scattered erosions in the antrum, fundus, and body. On retroflexed view, the superficial ulcer in the cardia was again visualized. On forward view , the pylorus appeared normal. The pyloric channel ulcer and the antral ulcer noted on previous exam in 2016 have healed. The pylorus was patent. In the duodenal bulb, there was mild duodenitis. The second portion of the duodenum appeared endoscopically normal. Biopsies were taken from both the duodenal and gastric mucosa. The lumen was decompressed and the scope was withdrawn from the gastric lumen. In the esophagus, on withdrawal the esophageal veins appeared slightly prominent. There were no varices per se or evidence of Strickland esophagus. After the exam was complete, lumen was decompressed and the scope was removed without incident. IMPRESSION: 1. Grade B to C erosive esophagitis. 2. Schatzki ring. 3. Hiatal hernia. 4. Mild erosive gastritis. 5. Superficial ulcer in the gastric cardia. 6. Mild duodenitis limited to the bulb. 7. The patient had a gastric emptying study that confirmed severe gastroparesis. RECOMMENDATION: 1. Await biopsy results. 2. Continue Protonix 40 mg IV q.12 hours. 3. Continue Carafate 1 g p.o. q.6 hours. 4. Will start a clear liquid diet. 5. Begin a gastroparesis diet. 6. Consider CTA of the mesentery if her abdominal pain persists. 7. I will discuss the option of erythromycin therapy to help with gastric emptying. Please note, she has absolute contraindication to the use of Reglan therapy based on her psychiatric medications. 8. The patient has a test from 07/01/2017 that shows gram-positive cocci in her urine. I will begin doxycycline as she has a progressive leukocytosis. 9. The patient on lab tests was noted to have polycythemia. This warrants further evaluation. I will defer to the primary team. 10. Additional recommendations to follow based on her clinical course. cc: MD SHERLEY Hadley
[2017-07-03] MEDS: PHENERGAN IV PRN ×2 (19:05→23:15)
[2017-07-03] MEDS: RISPERDAL PO SCH (20:08)
[2017-07-03] MEDS: BENTYL PO SCH (20:08)
[2017-07-03] MEDS ORDERED: DOXYCYCLINE PO SCH (21:00)
[2017-07-03] MEDS: SODIUM CHLORIDE 0.9% INJ PRN (23:15)
[2017-07-04] MEDS: CARAFATE LIQUID PO SCH ×4 (01:12→20:57)
[2017-07-04] MEDS: KEFZOL 1 GM/D5W 1 GM/50 ML IVPB IV SCH (01:57)
[2017-07-04] MEDS: VENTOLIN HFA INH SCH ×4 (03:21→23:15)
[2017-07-04 06:23] LABS: MANUAL DIFF NEEDED? NO
[2017-07-04 06:32] LABS: BASO% 0.1 % (0.0-0.8); EOS# 0.01 X1000 (0.0-0.7); EOS% 0.1 % (0.0-10.0); HEMATOCRIT 48.7 % (37.0-47.0); HEMOGLOBIN 16.2 g/dL (12.0-16.0); IMM GRAN# 0.02 X1000 (0.0-0.04); IMM GRAN% 0.2 % (0.0-0.5); LYMPH% 30.8 % (20.5-51.1); MCH 29.5 PG (27-31); MCHC 33.3 g/dL (33-37); MCV 88.7 FL (81-99); MONO# 1.25 X1000 (0.11-0.59); MPV 9.9 FL (7.4-10.4); NEUT% 57.8 % (42.2-75.2); PLT 314 X1000 (130-400); RBC 5.49 XMIL (4.2-5.4)
[2017-07-04 06:43] LABS: AGAP 15; BUN 19 mg/dL (8-22); CALCIUM 9.2 mg/dL (8.8-10.2); CHLORIDE 95 mmol/L (98-107); COSMO 281; POTASSIUM 2.9 mmol/L (3.5-5.1); SODIUM 138 mmol/L (136-145); TCO2 28 mmol/L (25-35)
[2017-07-04] MEDS ORDERED: MAGNESIUM SULFATE 2 GM/S.W.I. 2 GM/50 ML IVPB IV ONE (09:12)
[2017-07-04 09:14] LABS: ALLEN TEST YES; BE 6.5 mmoll (-3.0-3.0); BLOOD TYPE ARTERIAL; DRAW SITE R RADIAL; METHB 0.4 % (0.0-1.5); O2(CT) 21.5 mL/dL (15.0-23.0); PCO2(98.6) 40 mmHg (35-45); PO2(98.6) 57 mmHg (60-100); SAMPLE BLOOD; SAO2 91.3 % (95.0-100.0); THB 17.1 g/dL (11.5-17.4); pH(98.6) 7.49 (7.35-7.45)
[2017-07-04 09:15] LABS: MODALITY ROOM AIR
[2017-07-04] MEDS ORDERED: NS 1,000 ML IV ONE ×2 (09:17→10:00)
[2017-07-04] MEDS ORDERED: NS 1,000 ML ONE (09:42)
[2017-07-04] MEDS: SEROQUEL XR PO SCH ×2 (09:46→20:57)
[2017-07-04] MEDS: TOPROL XL PO SCH (09:46)
[2017-07-04] MEDS: NORVASC PO SCH (09:46)
[2017-07-04] MEDS: KLONOPIN PO SCH ×3 (09:46→20:57)
[2017-07-04] MEDS: BENTYL PO SCH ×4 (09:46→20:57)
[2017-07-04] MEDS: LOTENSIN PO SCH (09:47)
[2017-07-04] MEDS: KEFLEX PO SCH ×2 (09:47→20:58)
--- NOTE | 2017-07-04 10:11 | PROGRESS NOTE ---
DATE: 07/04/2017 SUBJECTIVE: Today, Ms. Robert referred to be doing fine. She says she had some abdominal pain last night, however, this morning she denies any pain. Earlier on today, the nurses went to check on her vitals, and she was slightly tachycardic. OBJECTIVE: Vital Signs: Blood pressure is 125/88, pulse is 151, respirations 16, temperature is 100 degrees. On general exam, Ms. Robert is a 51-year-old, -[place] female. She is in bed. She is completely asymptomatic. Mucosa slightly dry. Anicteric. Acyanotic. Neck is supple. Chest: Good air entry bilateral. There are some few bilateral rhonchi. Cardiovascular: Tachycardic but no murmurs, no rubs, no gallops. Abdomen is soft, nontender. Bowel sounds are present. [employer]IES ASSEMBLER: Patient is awake, alert, oriented x4. There is no focal neurological deficit. LABORATORY DATA: WBC is down to 11.36, hemoglobin is 16.2, platelet count of 314,000. Chemistry is reviewed. Sodium is 138, potassium is 2.9, chloride 95, bicarb is 28. Glucose is 147. The patient had an EGD done yesterday by Dr. Clark which showed some erosive gastritis, Schatzki's ring, hiatal hernia, and mild duodenitis limited to the bulb. ASSESSMENT: 1. Abdominal pain. This seems to have improved. 2. Nausea and vomiting, resolved. 3. Constipation likely due to opioid use. 4. Staphylococcal saprophyticus urinary tract infection. This is sensitive to Keflex, and it has induced clindamycin resistant positive. The patient is already on Keflex and will switch this to p.o. 5. Erythrocytosis. I think this is reactive to patient's tobacco abuse. We will do an arterial blood gas to see if she retains her CO2 or if she is slightly hypoxemic which will evidently explain why she has erythrocytosis. 6. Tachycardia with mildly elevated temperature. Not quite sure if this is from any infection. I think it is probably just from dehydration. I will give her a bolus of normal saline. Recheck on her vitals. I did an EKG which initially showed sinus tachy. Will replace her potassium and magnesium. Do a TSH to rule out any underlying thyroid disorder and go from there. cc: Enoch Mcneill MD
[2017-07-04] MEDS: PHENERGAN IV PRN ×2 (10:34→21:10)
[2017-07-04] MEDS: SODIUM CHLORIDE 0.9% INJ PRN ×2 (10:34→21:10)
[2017-07-04] MEDS: PROTONIX IV SCH ×2 (11:00→20:57)
[2017-07-04] MEDS: POTASSIUM CHLORIDE 20 MEQ/SWI 20 MEQ/100 ML IVPB IV SCH ×2 (14:08→17:37)
[2017-07-04] MEDS ORDERED: MORPHINE IV ONE (17:02)
--- NOTE | 2017-07-04 19:09 | PROGRESS NOTE ---
DATE: 07/04/2017 SUBJECTIVE: The patient states that she is feeling much better today. She was able to tolerate a liquid diet overnight without difficulty. She denies nausea with vomiting, abdominal pain, and diarrhea. However, she was noted to have a resting tachycardia with a heart rate of 140-151 this morning. In addition, she was found to have a low-grade temperature and unexplained hypoxia on arterial blood gas. From a GI perspective, there are no new concerns. PHYSICAL EXAM: Vital signs: Reveals a blood pressure of 125/88, pulse of 151 , respirations 16, temperature of 100.0 degrees. HEENT: Negative for jaundice. Pulmonary: Lungs are clear to auscultation with normal respiratory effort. Cardiovascular: Reveals a resting tachycardia but no gallops, murmurs or rubs. Abdomen: Reveals normoactive bowel sounds. The abdomen is soft and nontender. Extremities: Bilaterally are negative for cyanosis, clubbing, or edema. OBJECTIVE DATA: Includes a hemoglobin of 16.2 with hematocrit of 48.7 and a white count of 11.36. She has 314,000 platelets. On room air her PH is 7.49, pCO2 40, PO2 57, with oxyhemoglobin of 89.7. Her sodium is 138, potassium 2.9, chloride 95, CO2 28, BUN 19, creatinine 0.8 with a glucose of 147. Calcium is 9.8, plasma lactate 1.4, free T4 of 1.10. On 2016 her repeat CEA was 6.1. Her alpha fetoprotein remains low at 3.9. On EGD performed on 09/2017 the patient was found to have grade B to C erosive esophagitis, Schatzki ring, hiatal hernia, erosive gastritis, and a superficial ulcer in the gastric cardia and duodenitis. RECOMMENDATION: 1. From a gastrointestinal perspective, the patient's abdominal pain has improved considerably. I would continue her current medications including Protonix and Carafate. This will allow for interval healing of the gastric ulcer. 2. Her constipation, abdominal pain have improved with the addition of Bentyl 10 mg 4 times a day. I would continue this as an outpatient. The source of her low-grade fever and tachycardia are unclear. I would not discharge the patient prior to determining the cause of her symptoms. She has been resting in the bed for the last several days since admission. She was encouraged to ambulate in the hallway multiple times over the course of the day. I recommend reassessing her labs in the morning. If they remain abnormal, further evaluation is encouraged. 3. She is due for outpatient colonoscopy. We will schedule that when she has been discharged to home. 4. Please have the patient return to clinic in 4 weeks to assess interval progress. cc: Vidhi Clark MD MTDD
[2017-07-04] MEDS: SODIUM CHLORIDE 0.9% INJ SCH (20:57)
[2017-07-04] MEDS: RISPERDAL PO SCH (20:58)
[2017-07-05] MEDS: OFIRMEV 1000 MG/ISOTONIC SOLN 1,000 MG/100 ML BOTTLE IV PRN ×2 (02:45→08:08)
[2017-07-05] MEDS: SODIUM CHLORIDE 0.9% INJ PRN (02:45)
[2017-07-05] MEDS: PHENERGAN IV PRN (02:45)
[2017-07-05] MEDS: CARAFATE LIQUID PO SCH ×3 (02:45→14:42)
[2017-07-05] MEDS: VENTOLIN HFA INH SCH ×2 (03:09→09:07)
[2017-07-05 05:51] LABS: MANUAL DIFF NEEDED? NO
[2017-07-05 05:57] LABS: BASO% 0.2 % (0.0-0.8); EOS# 0.08 X1000 (0.0-0.7); EOS% 0.8 % (0.0-10.0); HEMATOCRIT 45.7 % (37.0-47.0); HEMOGLOBIN 15.1 g/dL (12.0-16.0); IMM GRAN# 0.02 X1000 (0.0-0.04); IMM GRAN% 0.2 % (0.0-0.5); LYMPH# 3.79 X1000 (1.2-3.4); LYMPH% 36.5 % (20.5-51.1); MCH 29.7 PG (27-31); MCV 89.8 FL (81-99); MONO# 0.99 X1000 (0.11-0.59); MONO% 9.5 % (1.7-9.3); MPV 9.8 FL (7.4-10.4); NEUT% 52.8 % (42.2-75.2); PLT 285 X1000 (130-400); RBC 5.09 XMIL (4.2-5.4)
[2017-07-05 06:22] LABS: AGAP 16; ALBUMIN 3.4 g/dL (3.5-5.0); ALKALINE PHOSPHATASE 66 U/L (32-104); BUN 15 mg/dL (8-22); CALCIUM 8.6 mg/dL (8.8-10.2); CHLORIDE 96 mmol/L (98-107); COSMO 281; GOT 14 U/L (10-30); GPT 12 U/L (10-36); POTASSIUM 3.5 mmol/L (3.5-5.1); SODIUM 139 mmol/L (136-145); TCO2 27 mmol/L (25-35); TOTAL BILIRUBIN 0.67 mg/dL (0.20-1.00)
[2017-07-05] MEDS: BENTYL PO SCH ×2 (08:09→14:42)
[2017-07-05] MEDS: KEFLEX PO SCH (08:09)
[2017-07-05] MEDS: LOTENSIN PO SCH (08:09)
[2017-07-05] MEDS: SEROQUEL XR PO SCH (08:10)
[2017-07-05] MEDS: KLONOPIN PO SCH ×2 (08:10→14:41)
[2017-07-05] MEDS: CATAPRES PO PRN (08:10)
[2017-07-05] MEDS: TOPROL XL PO SCH (08:10)
[2017-07-05] MEDS: NORVASC PO SCH (08:10)
[2017-07-05] MEDS: SODIUM CHLORIDE 0.9% INJ SCH (09:03)
[2017-07-05] MEDS: PROTONIX IV SCH (09:03)
[2017-07-05 13:01] VITALS: BP 111/68
--- NOTE | 2017-07-05 14:24 | Diag Imaging Result Doc PS360 ---
EXAM: ANGIOGRAM/PULMONARY ARTERIES HISTORY: SOB/Tachycardia/ r/o PE TECHNIQUE: CT of the chest with intravenous contrast and pulmonary arteriogram protocol with 3-D MIPS and dose reduction (clarity.) COMMENT: The current study is compared without of 10/17/2014. There are no filling defects in the pulmonary arteries. The aorta is not distended and there is no evidence of aortic dissection. There are no abnormal fluid collections. There is obstruction of the right lower lobe bronchus with atelectasis of the right lower lobe. This was not the case on the previous study. This was not present on 07/01/2017. There is no evidence of significant adenopathy. Minimal emphysematous changes are present in the subpleural zones of the upper lobes. IMPRESSION: No evidence of pulmonary emboli. Atelectasis and/or pneumonia in the right lower lobe with mucous plugging in the right lower lobe bronchus. Electronically signed by Zain Carlton 07/05/2017 2:22 PM
[2017-07-05] MEDS ORDERED: ZITHROMAX 500 MG/NS 500 MG/250 ML IVPB IV ONE (14:26)
--- NOTE | 2017-07-05 20:12 | DISCHARGE SUMMARY ---
ADMISSION DATE: 07/01/2017 DISCHARGE DATE: 07/05/2017 DISPOSITION: Home. FOLLOWUP: 1. Dr. Clark. 2. Dr. Interiano. 3. Patient's PCP. INVASIVE PROCEDURES DONE: EGD was done by Dr. Clark on 07/03/2017. IMAGING STUDIES: Of significance: 1. A CT scan of the abdomen and pelvis was done which showed stable abdomen, hiatal and ventral hernias. 2. Gastric empty study was done which showed 0% of gastric output; however, an upper GI barium swallow was done which shows no evidence of gastric outlet obstruction or gastroparesis. 3. A CTA of the lungs was done which shows no evidence of PE, but there is atelectasis and/or pneumonia in the right lower lobe with mucus plugging in the right lower lobe bronchus. ADMISSION DIAGNOSES: 1. Nausea and vomiting, abdominal pain. 2. History of ulcers. 3. Hypertension. 4. Bipolar and schizophrenia disorder. 5. Nicotine abuse. DIAGNOSES AT THE TIME OF DISCHARGE: 1. Abdominal pain, nausea and vomiting. We think this is secondary to constipation vs IBS 2. Staphylococcal saprophyticus urinary tract infection. 3. Reactive erythrocytosis. 4. Tobacco abuse. 5. Chronic obstructive pulmonary disease in mild exacerbation. 6. Right lower lobe pneumonia/atelectasis. 7. Subclinical hypothyroidism. 8. Hypertension. 9. Bipolar disorder/schizophrenia. DISCHARGE MEDICATIONS: 1. Duloxetine 60 mg daily. 2. Amlodipine/benazepril 1 tablet daily. 3. Dulcolax 5 mg p.r.n. daily. 4. Trazodone 150 p.o. at bedtime. 5. Quetiapine 600 mg at bedtime. 6. Omeprazole 40 mg daily. 7. Metoprolol 25 mg daily. 8. Gabapentin 300 four times per day. 9. Risperidone 3 mg at bedtime. 10. Azithromycin 250 p.o. daily. 11. Cephalexin 500 mg q. 12. 12. Bentyl 10 mg q. 4 p.r.n. PRESENTING COMPLAINT: Abdominal pain, nausea and vomiting. HISTORY OF PRESENTING COMPLAINT: Ms. Robert is a 51-year-old female who presented to [facility] because of significant abdominal pain, nausea and vomiting. Initial investigations were done over there where a gastric empty study showed a 0% gastric output. Patient was transferred over here for further medical care. HOSPITAL COURSE: The patient did pretty well during the hospital course. The gastric empty study was very poor. A small bowel upper barium swallow was done, which did not show any remarkable disease. A CT scan of the abdomen and pelvis was also unremarkable and an upper GI endoscopy did not show any remarkable disease. Patient's abdominal pain, however, improved with bowel preparation. During the hospital stay we also found out that she was having some urine symptoms prior to coming and a urine testing showed that she had staphylococcal saprophyticus in the urine which was sensitive to Keflex, so was switched to Keflex. About a day or two into the hospitalization, patient became slightly tachycardic with low-grade fever. A CTA of the lungs this morning does show atelectasis to the right posterior lung field versus some pneumonia. Patient had been started on azithromycin for the presumed pneumonia. Today she refers to be doing a whole lot better. Vitals have been stable. She is therefore going to be discharged. She will follow up with Dr. Clark and Dr. Interiano for COPD and she was also found to have abnormally high TSH. She was advised to follow up with her primary care doctor and repeat the TSH in about 6 weeks to make sure that it is not above 10 or does not have any other symptomatology that needs to be addressed for the subclinical hypothyroidism. At the time of discharge, there are no pending labs or imaging studies. Specifically, the patient is supposed to follow up with Dr. Clark and Dr. Interiano. She is advised to do thyroid function test in 6 weeks time and she has been advised and stressed the importance of smoking cessation. Time spent for discharge is 37 minutes. cc: MD SHERLEY Hadley
--- NOTE | 2017-07-06 06:27 | EKG Report ---
Test Performed on : 07/04/2017 09:05:01 AM Test Reason : elevated HR Blood Pressure : / mmHG Vent. Rate : 145 BPM Atrial Rate : 145 BPM P-R Int : 130 ms QRS Dur : 070 ms QT Int : 348 ms P-R-T Axes : 025 069 066 degrees QTc Int : 540 ms Sinus tachycardia. with premature atrial complexes. Nonspecific ST and T wave abnormality Abnormal ECG When compared with ECG of 17-OCT-2014 10:19, premature atrial complexes. are now present Nonspecific T wave abnormality now evident in Lateral leads Rate related ST segment depression suggested (inferior leads) Confirmed by Noe Downing DO ([id number]) on 07/07/2017 7:20:01 AM
[2017-07-06] MEDS ORDERED: ZITHROMAX PO SCH (09:00)
== END 2017-07-05 15:17 | disposition home or self-care (01) ==
LOC: P.ED 05:15 → P.MEDSURG 05:16 → SUATTDRO 05:16 → 4N 23:35
PROVIDERS: ATTEND Internal Medicine